=== PATIENT | female | born 1985 | race African-American/Black ===

== ENCOUNTER 2017-12-28 00:01 | Emergency (ER) | payer SELFPAY ==
[2017-12-28] MEDS: ACETAMINOPHEN 325 MG TABLET. PO (00:28)
[2017-12-28] MEDS: HYDROcodone/APAP 5/325MG 1 TAB TABLET PO (00:28)
== END 2017-12-28 00:53 | disposition home or self-care (01) ==
LOC: ER 00:01
DX: S39.012A Strain of muscle, fascia and tendon of lower back, initial encounter (principal); F12.10 Cannabis abuse, uncomplicated; X58.XXXA Exposure to other specified factors, initial encounter; Y93.89 Activity, other specified; Y99.8 Other external cause status; Y92.89 Other specified places as the place of occurrence of the external cause
CPT/HCPCS: 99283

== ENCOUNTER 2017-12-29 10:36 | Emergency (ER) | payer SELFPAY ==
[2017-12-29] MEDS: KETOROLAC 60 MG/2 ML INJ. IM (12:01)
== END 2017-12-29 12:30 | disposition home or self-care (01) ==
LOC: ER 10:36
DX: G89.29 Other chronic pain (principal); M54.9 Dorsalgia, unspecified; Z76.5 Malingerer [conscious simulation]
CPT/HCPCS: 96372; 99283; J1885

== ENCOUNTER 2018-01-04 10:43 | Emergency (ER) | payer SELFPAY ==
[2018-01-04 11:02] LABS: BILIRUBIN,URINE NEGATIVE (NEG); CLARITY,URINE CLEAR; COLOR,URINE YELLOW; GLUCOSE,URINE NEGATIVE (NEG); NITRITE,URINE NEGATIVE (NEG); PH,URINE 7.5; PROTEIN,URINE 30 mg/dL (NEG-TRACE)
[2018-01-04 11:02] LABS: URINE HCG POC HCG NEGATIVE (Negative)
[2018-01-04 11:08] LABS: BACTERIA,URINE 0 /HPF (0-FEW); RBC,URINE 0 /HPF (0-2); SQUAMOUS EPITHELIAL CELL,UR FEW /LPF; WBC,URINE 0 /HPF (0-4)
[2018-01-04] MEDS: KETOROLAC 60 MG/2 ML INJ. IM (11:19)
== END 2018-01-04 11:34 | disposition home or self-care (01) ==
LOC: ER 10:43
DX: G89.29 Other chronic pain (principal); M54.5 Low back pain; M54.6 Pain in thoracic spine; F12.10 Cannabis abuse, uncomplicated
CPT/HCPCS: 81001; 81025; 87086; 96372; 99284-25; J1885

== ENCOUNTER 2018-02-24 12:16 | Emergency (ER) | payer SELFPAY ==
[~2018-02-24] VITALS: Ht 170.2 cm; Wt 68.1 kg
[2018-02-24 12:36] VITALS: BP 143/88
--- NOTE | 2018-02-24 13:44 | PHYS DOC ---
Past Medical History Past Medical History: No Pertinent History Past Surgical History: Alcohol Use: None Drug Use: None Social History Narrative: CLEAN FOR A MONTH Adult General Chief Complaint Chief Complaint: BACK PAIN - NO INJURY HPI HPI Patient is a 32 year old female who presents to the ED today complaining of exacerbation of chronic stabbing 10 out of 10 back pain, patient states she's had this pain for years and it radiates to her bilateral upper extremities. Patient denies any known injury. Denies any pain radiating to bilateral lower extremities, denies any loss of bowel bladder function. She states she is in the ED to receive a shot for her pain. She states she has tried over-the- counter medications with no relief. Review of Systems Review of Systems Constitutional: Denies fever or chills [] Musculoskeletal: Reports back pain radiating to bilateral upper extremities Integument: Denies rash or skin lesions [] Neurologic: Denies headache, focal weakness or sensory changes [] All other systems were reviewed and found to be within normal limits, except as documented in this note. Allergies Allergies Allergies Coded Allergies Type Severity Reaction Last Updated Verified No Known Drug Allergies 12/28/17 No Physical Exam Physical Exam Constitutional: Well developed, well nourished, no acute distress, non-toxic appearance. [] Skin: Warm, dry, no erythema, no rash. [] Back: Diffuse paraspinal muscle tenderness to the entire spine, no midline spinal tenderness, no CVA tenderness. [] Extremities: No tenderness, no cyanosis, no clubbing, ROM intact, no edema. [] Neurologic: Alert and oriented X 3, normal motor function, normal sensory function, no focal deficits noted. [] Psychologic: Affect normal, judgement normal, mood normal. [] Current Patient Data Vital Signs Vital Signs Date Time Temp Pulse Resp B/P (MAP) Pulse Ox O2 Delivery O2 Flow Rate FiO2 02/24/18 12:36 98.4 72 16 143/88 (106) 100 Room Air 98.4 EKG EKG [] Radiology/Procedures Radiology/Procedures [] Course & Med Decision Making Course & Med Decision Making Pertinent Labs and Imaging studies reviewed. (See chart for details) This is a 32-year-old female patient presenting to the ED today with exacerbation of chronic back pain, no known injury. Patient will be given Toradol and discharged. OTC pain relievers recommended. Dragon Disclaimer Dragon Disclaimer This electronic medical record was generated, in whole or in part, using a voice recognition dictation system. Departure Departure Impression: Primary Impression: Chronic back pain greater than 3 months duration Disposition: 01 HOME, SELF-CARE Condition: STABLE Referrals: NO PCP (PCP) CARRIE LARA MD follow up in one week Patient Instructions: Back Pain, Adult Additional Instructions: You were seen for chronic back pain. Continue taking [id number] medications as needed. Follow-up with your own doctor or the pain clinic doctor provided as soon as you can. KHADIJAH DAVILA [employer]DER Feb 24, 2018 13:44
[2018-02-24] MEDS ORDERED: KETOROLAC 60 MG/2 ML INJ. IM ONE (13:45)
[2018-02-24] MEDS ORDERED: DICL50TA4 PO (15:47)
[2018-02-24] MEDS ORDERED: CYCL10TA2 PO (15:47)
[2018-02-24] MEDS ORDERED: METH4TAB2 PO (15:47)
== END 2018-02-24 13:58 | disposition home or self-care (01) ==
LOC: ER 12:16
DX: G89.29 Other chronic pain (principal); M54.9 Dorsalgia, unspecified; Z98.890 Other specified postprocedural states
CPT/HCPCS: 96372; 99283; J1885

== ENCOUNTER 2018-02-24 15:19 | Emergency (ER) | payer SELFPAY ==
[~2018-02-24] VITALS: Ht 170.2 cm; Wt 68.0 kg
[2018-02-24 15:40] VITALS: BP 148/90
[2018-02-24] MEDS ORDERED: DEXAMETHASONE SOD PHOS 20 MG/5 ML VIAL. IM ONE (15:45)
[2018-02-24] MEDS ORDERED: diazePAM 5 MG TABLET PO ONE (15:45)
[2018-02-24] MEDS ORDERED: METH4TAB2 PO (15:47)
[2018-02-24] MEDS ORDERED: CYCL10TA2 PO (15:47)
[2018-02-24] MEDS ORDERED: DICL50TA4 PO (15:47)
--- NOTE | 2018-02-24 15:47 | PHYS DOC ---
Past Medical History Past Medical History: No Pertinent History Past Surgical History: Alcohol Use: None Drug Use: None Adult General Chief Complaint Chief Complaint: PAIN CONTROL HPI HPI Patient is a 32 year old female with history of chronic back pain radiating to bilateral upper extremities are presents today complaining of chronic back pain. Patient was seen in the ED a few minutes ago, was given Toradol IM. She returns stating that Toradol did not fill the same and she still has the pain. Denies any injury. No loss of bowel bladder function. Review of Systems Review of Systems Constitutional: Denies fever or chills [] GI: Denies abdominal pain, nausea, vomiting, bloody stools or diarrhea [] : Denies dysuria or hematuria [] Musculoskeletal: Reports chronic back pain Integument: Denies rash or skin lesions [] Neurologic: Denies headache, focal weakness or sensory changes [] All other systems were reviewed and found to be within normal limits, except as documented in this note. Allergies Allergies Allergies Coded Allergies Type Severity Reaction Last Updated Verified No Known Drug Allergies 12/28/17 No Physical Exam Physical Exam Constitutional: Well developed, well nourished, no acute distress, non-toxic appearance. [] Abdomen: Bowel sounds normal, soft, no tenderness, no masses, no pulsatile masses. [] Skin: Warm, dry, no erythema, no rash. [] Back: No tenderness, no CVA tenderness. [] Extremities: No tenderness, no cyanosis, no clubbing, ROM intact, no edema. [] Neurologic: Alert and oriented X 3, normal motor function, normal sensory function, no focal deficits noted. [] Psychologic: Affect normal, judgement normal, mood normal. [] EKG EKG [] Radiology/Procedures Radiology/Procedures [] Course & Med Decision Making Course & Med Decision Making Pertinent Labs and Imaging studies reviewed. (See chart for details) This is a 32-year-old female patient presenting to the ED today complaining of chronic back pain. Patient was seen in the ED a few minutes ago by me, given Toradol, she states that Toradol does not feel the same, she still has pain. Given Decadron and Valium in the ED. Discharged with cyclobenzaprine, diclofenac , and Medrol Dosepak. Instructed to follow-up with the pain clinic for chronic pain. She is no cauda equina syndrome symptoms. Dragon Disclaimer Dragon Disclaimer This electronic medical record was generated, in whole or in part, using a voice recognition dictation system. Departure Departure Impression: Primary Impression: Chronic back pain greater than 3 months duration Disposition: 01 HOME, SELF-CARE Condition: STABLE Referrals: NO PCP (PCP) CARRIE LARA MD follow up in one week Patient Instructions: Back Pain, Adult, [id number] Additional Instructions: You were evaluated in the emergency room for chronic back pain. Please follow- up with the pain clinic. Take the prescribed medications as ordered. Scripts Methylprednisolone (MEDROL) 4 Mg Tab.ds.pk 1 PKG PO UD, #1 PKG Prov: KHADIJAH DAVILA APRN 02/24/18 Diclofenac Sodium (DICLOFENAC SODIUM) 50 Mg Tablet.dr 1 TAB PO BID, #20 TAB 0 Refills Prov: KHADIJAH DAVILA APRN 02/24/18 Cyclobenzaprine Hcl (CYCLOBENZAPRINE HCL) 10 Mg Tablet 1 TAB PO TID, #30 TAB Prov: KHADIJAH DAVILA APRN 02/24/18 KHADIJAH DAVILA APRN Feb 24, 2018 15:47
== END 2018-02-24 16:10 | disposition home or self-care (01) ==
LOC: ER 15:19
DX: G89.29 Other chronic pain (principal); M54.9 Dorsalgia, unspecified; Z98.890 Other specified postprocedural states
CPT/HCPCS: 96372; 99283; J1100